=== PATIENT | female | born 1955 | race Caucasian/White ===

== ENCOUNTER 2023-11-14 08:11 | Outpatient (AMB) | payer MEDICARE, SELFPAY ==
--- NOTE | 2023-11-14 08:22 | AM.OFFWIN_ITS ---
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 Note: pt is here for c.o right eye swollen, sinus pressure since yesterday morning Patient Tobacco Use Status: Never used Tobacco Allergies gabapentin Allergy (Mild, Verified 11/14/23 08:24) Stomach Upset meclizine Allergy (Mild, Verified 11/14/23 08:24) Nightmare Medication List - Last Reconciled 11/14/23 by Mercedes Guo MD amitriptyline mg PO levothyroxine 50 mcg PO DAILY Do you need a note to return to daycare/school/sports/work: No HPI 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 2 HPI0 Details Patient is 68-year-old female came in today to be evaluated for possible sinus infection and right eye infection Patient says that she has been having sinus inflammation and pressure 4 weeks now She has not talked about it with her primary care But for the past few days she is having more nasal congestion and yellow nasal discharge Since yesterday she is also having discharge from her right eye and it feels irritated On examination patient have conjunctivitis right eye with injected conjunctiva and yellow discharge on the corners No photophobia She also have sinus discomfort with pressure I am treating her with azithromycin for sinusitis And Polytrim eyedrops for conjunctivitis Patient was notified to follow with the primary care Review system: No fever no chills there is mild cough no chest pain no shortness a breath there is no nausea there is no vomiting or abdominal pain there is no diarrhea No rashes PFSH Social History Patient Tobacco Use Status: Never used Tobacco Review of Systems Const All systems reviewed & are unremarkable except as noted in HPI and below Physical Exam Vital Signs: Last Vital Signs Temp 98.9 F 11/14/23 08:23 Pulse 102 H 11/14/23 08:23 BP 126/77 11/14/23 08:23 Pulse Ox 97 11/14/23 08:23 Oxygen Delivery Method Room Air 02/27/24 08:23 BMI result Body Mass Index 29.2 Const General: no acute distress HEENT Other: Mild throat erythema present, uvula midline, no exudate. Ears: mastoids normal General nose exam: Normal external nose present Throat: Yes posterior oropharynx abnormal Eyes Eyes/upper lids images: 2 1. Conjunctiva injected, yellow discharge both corners, no photophobia, cornea clear Neck Neck: Yes no lymphadenopathy Resp Effort & Inspection: normal respiratory effort Auscultation: clear to auscultation bilaterally Cardio Other: S1 S2 Psych Mental Status: mental status grossly normal Assessment & Plan Assessment & Plan (1) Acute bacterial conjunctivitis of right eye: Code(s): H10.31 - Unspecified acute conjunctivitis, right eye (2) Acute maxillary sinusitis: Code(s): J01.00 - Acute maxillary sinusitis, unspecified Qualifiers: Recurrence: not specified as recurrent Qualified Code(s): J01.00 - Acute maxillary sinusitis, unspecified Plan Patient is 68-year-old female came in today to be evaluated for possible sinus infection and right eye infection Patient says that she has been having sinus inflammation and pressure 4 weeks now She has not talked about it with her primary care But for the past few days she is having more nasal congestion and yellow nasal discharge Since yesterday she is also having discharge from her right eye and it feels irritated On examination patient have conjunctivitis right eye with injected conjunctiva and yellow discharge on the corners No photophobia She also have sinus discomfort with pressure I am treating her with azithromycin for sinusitis And Polytrim eyedrops for conjunctivitis Patient was notified to follow with the primary care Review system: No fever no chills there is mild cough no chest pain no shortness a breath there is no nausea there is no vomiting or abdominal pain there is no diarrhea No rashes Medications: New 2 azithromycin Take 2 tablets today then 1 daily 250 mg PO ONCE 6 tabs 0RF 5 days J06.9 - Acute upper respiratory infection, unspecified polymyxin B sulf-trimethoprim 10,000 unit- 1 mg/mL while awake; do not exceed 6 doses in 24 hours 1 drp ophthalmic (eye) QID 10 mL 0RF 7 days Coding Level of Care Code New Pt Level 3 (82000) Diagnoses Acute bacterial conjunctivitis of right eye H10.31 Acute maxillary sinusitis, recurrence not specified J01.00 Recurrence: not specified as recurrent
[2023-11-14 08:23] VITALS: BP 126/77; PULSE 102; TEMP 37.2; O2SAT 97; BMI 29.2
== END 2023-11-14 09:12 | disposition home or self-care (01) ==
PROVIDERS: Visit Provider Internal Medicine
DX: H10.31 Unspecified acute conjunctivitis, right eye (principal); J01.00 Acute maxillary sinusitis, unspecified
CPT/HCPCS: 99203

== ENCOUNTER 2023-12-05 12:07 | Outpatient (AMB) | payer MEDICARE, SELFPAY ==
--- NOTE | 2023-12-05 12:10 | MHC.OFFWIV ---
Intake Vital Signs 12/05/23 12:11 Weight 168 lb BP 120/80 Blood Pressure Location Lt brachial Position Sitting Pulse 110 H Pulse Source Pulse Oximeter Temp 98.9 F Temp Source Oral Pulse Oximetry (%) 98 Oxygen Delivery Method Room Air Intake Visit Reasons: EP Cough, Mucus Intake Note: Patient here for cough, green mucus and crackling in chest that has been present for about 1 week. Patient Tobacco Use Status: Never used Tobacco Allergies gabapentin Allergy (Mild, Verified 12/05/23 12:34) Stomach Upset meclizine Allergy (Mild, Verified 12/05/23 12:34) Nightmare Medication List - Last Reconciled 12/05/23 by Kyaw Bruner MD amitriptyline mg PO levothyroxine 50 mcg PO DAILY Do you need a note to return to daycare/school/sports/work: No HPI EP Cough, Mucus HPI Details Patient presents for a sick visit. Reporting symptoms of sinus congestion, sore throat and difficulty swallowing. Low-grade fever. No family member is sick. No recent travel. Patient reports symptoms of malaise and fatigue. Patient has a grandchild that has been sick in the winter. [facility] Social History Patient Tobacco Use Status: Never used Tobacco Physical Exam Vital Signs: Last Vital Signs Temp 98.9 F 12/05/23 12:11 Pulse 110 H 12/05/23 12:11 BP 120/80 12/05/23 12:11 Pulse Ox 98 12/05/23 12:11 Oxygen Delivery Method Room Air 12/05/23 12:11 Const General: cooperative and healthy appearing Nutritional Appearance: well nourished Orientation/consciousness: patient oriented x3 Limitations: no limitations HEENT Head: Yes normal to inspection Eyes General: appearance normal, both eyes and all related structures Neck Neck: Yes normal visual inspection Chest Chest palpation & inspection: normal palpation of entire chest wall Resp Effort & Inspection: normal respiratory effort Neuro General: patient oriented x3 Assessment & Plan Assessment & Plan (1) Upper respiratory tract infection: Code(s): J06.9 - Acute upper respiratory infection, unspecified Plan: Azithromycin, prednisone and albuterol called in. Symptoms do not improve to follow-up here. Coding Level of Care Code Est Pt Level 3 (33549) Diagnoses Upper respiratory tract infection J06.9
[2023-12-05 12:11] VITALS: BP 120/80; PULSE 110; TEMP 37.2; O2SAT 98
== END 2023-12-05 12:59 | disposition home or self-care (01) ==
PROVIDERS: PCP Student in an Organized Health Care Education/Training Program; Visit Provider Internal Medicine
DX: J06.9 Acute upper respiratory infection, unspecified (principal)
CPT/HCPCS: 99213